=== PATIENT | female | born 1950 | race Caucasian/White ===

== ENCOUNTER → 2017-02-08 | Outpatient (CLI) | payer MEDICARE | END | disposition home or self-care (01) | LOC: CFH 12:20 | PROVIDERS: ATTEND Family Medicine | DX: N63 Unspecified lump in breast (principal) | CPT/HCPCS: 76641; G0206 ==

== ENCOUNTER 2019-01-16 09:13 | Inpatient (IN) | payer MEDICARE ==
[~2019-01-16] VITALS: Ht 162.6 cm; Wt 53.4 kg
[2019-01-16] MEDS ORDERED: PANTOPRAZOLE 80 MG in SODIUM CHLORIDE 0.9% 50 ML IVPB ONE (09:25)
[2019-01-16] MEDS ORDERED: PANTOPRAZOLE 80 MG in SODIUM CHLORIDE 0.9% 100 ML IV SCH (09:25)
[2019-01-16] MEDS ORDERED: SODIUM CHLORIDE 0.9% 1,000 ML IV ONE (09:25)
[2019-01-16] MEDS ORDERED: SODIUM CHLORIDE FLUSH 10ML SYR IVF ONE (09:30)
[2019-01-16 09:55] LABS: BASOPHILS # (AUTO) 0.01 x10^3/uL (0-0.1); BASOPHILS % (AUTO) 0 % (0-1); EOSINOPHILS # (AUTO) 0.04 x10^3/uL (0-0.4); EOSINOPHILS % (AUTO) 1 % (1-7); LYMPHOCYTES # (AUTO) 0.34 x10^3/uL (1-3.4); LYMPHOCYTES % (AUTO) 6 % (22-44); MD NO; MEAN CORPUSCULAR HEMOGLOBIN 30.6 pg (27.0-34.8); MEAN CORPUSCULAR HGB CONC 33.5 g/dL (32.4-35.8); MEAN CORPUSCULAR VOLUME 91.2 fL (80-100); MEAN PLATELET VOLUME 8.2 fL (7.4-10.4); MONOCYTES # (AUTO) 0.32 x10^3/uL (0.2-0.8); MONOCYTES % (AUTO) 6 % (2-9); NEUTROPHILS % (AUTO) 87 % (42-75); PLATELET COUNT 230 x10^3/uL (130-400); RED BLOOD COUNT 1.66 x10^6/uL (3.82-5.3); RED CELL DISTRIBUTION WIDTH 13.8 % (9.6-15.2)
--- NOTE | 2019-01-16 09:57 | NUR ---
Pt resting in bed, comfortable, family at bedside. Denies any pain or needs at this time. Critical result received from lab, Hgb 5.1, Hct 15.1, ERP made aware.
[2019-01-16 09:58] LABS: INTERNATIONAL NORMALIZED RATIO 1.02 (0.93-1.1); PROTHROMBIN TIME 10.7 Seconds (9.6-11.5)
--- NOTE | 2019-01-16 10:00 | NUR ---
paged dr gonzalez for dr love
[2019-01-16 10:02] LABS: ALBUMIN 2.5 g/dL (3.4-5.0); ANION GAP 5 mmol/L (5-15); CALCIUM 8.2 mg/dL (8.5-10.1); CHLORIDE 110 mmol/L (98-107); CREATININE 0.52 mg/dL (0.55-1.02)
--- NOTE | 2019-01-16 10:02 | NUR ---
dr gonzalez returned call to dr love
[2019-01-16 10:03] LABS: ALANINE AMINOTRANSFERASE < 6 U/L (12-78)
[2019-01-16 10:04] LABS: ALKALINE PHOSPHATASE 69 U/L (45-117); BILIRUBIN,TOTAL 0.2 mg/dL (0.2-1.0); TOTAL PROTEIN 5.3 g/dL (6.4-8.2)
--- NOTE | 2019-01-16 10:29 | NUR ---
PT MOVED TO TR04, CARE ASSUMED. PT GAVE VERBAL CONSENT FOR BLOOD TRANSFUSION.
[2019-01-16] MEDS ORDERED: METOCLOPRAMIDE 5 MG/ML, 2ML ONE (10:31)
--- NOTE | 2019-01-16 10:34 | NUR ---
PT WITH 300MLS BLOODY EMESIS. PT PALE, SR PER MONITOR,
--- NOTE | 2019-01-16 10:52 | NUR ---
PT INTUBATED BY DR PECK 8.0 ETT, 22 AT [facility], AC 12 TV 500 PEEP 5 100%
[2019-01-16] MEDS ORDERED: FENTANYL PF 100 MCG/2ML ONE ×2 (10:55→12:05)
[2019-01-16] MEDS ORDERED: PHENYLEPHRINE 10 MG in SODIUM CHLORIDE 0.9% 249 ML IV PRN ×2 (10:56→12:30)
[2019-01-16 11:07] VITALS: BP 173/80
--- NOTE | 2019-01-16 11:11 | NUR ---
CORDIS PLACED IN RIGHT FEMORAL BY DR PECK
[2019-01-16 11:22] VITALS: BP 143/83
--- NOTE | 2019-01-16 11:35 | NUR ---
REPORT CALLED TO SAMANTHA GRAY
[2019-01-16 11:41] VITALS: BP 154/88
--- NOTE | 2019-01-16 11:43 | NUR ---
TUBE PUSHER AT BEDSIDE FOR ABG AND LAB DRAW.
[2019-01-16] MEDS: PANTOPRAZOLE 80 MG in SODIUM CHLORIDE 0.9% 100 ML IV SCH ×2 (11:46→20:16)
[2019-01-16 11:58] VITALS: BP 148/89
[2019-01-16] MEDS ORDERED: ACETAMINOPHEN 325 MG TABLET PO PRN (12:00)
[2019-01-16] MEDS ORDERED: METOCLOPRAMIDE 5 MG/ML, 2ML IVPush ONE (12:00)
[2019-01-16] MEDS ORDERED: POLYETHYLENE GLYCOL 17 GM PACKET PO PRN (12:00)
[2019-01-16] MEDS ORDERED: MIDAZOLAM 1 MG/ML, 2ML IVPush ONE ×4 (12:00→13:30)
[2019-01-16] MEDS ORDERED: SUCCINYLCHOLINE 20 MG/ML, 10ML IVPush ONE (12:00)
[2019-01-16] MEDS ORDERED: ONDANSETRON 2MG/ML, 2ML IVPush PRN (12:00)
[2019-01-16] MEDS ORDERED: ETOMIDATE 20 MG/10 ML IVPush ONE (12:00)
[2019-01-16] MEDS ORDERED: FENTANYL PF 100 MCG/2ML IVPush ONE ×3 (12:00→12:30)
--- NOTE | 2019-01-16 12:01 | NUR ---
PT BITING ON ETT, DISCUSSED WITH DR PECK, ORDER FOR 5MG VERSED RECEIVED AND GIVEN.
--- NOTE | 2019-01-16 12:08 | NUR ---
DR PECK AT BEDSIDE. PT GIVEN 100MG FENTANYL. PT BITING ON TUBE. BP 148/86SR PER MONITOR
--- NOTE | 2019-01-16 12:18 | NUR ---
DR GUERRERO AT BEDSIDE TO EVAL PT
--- NOTE | 2019-01-16 12:29 | NUR ---
DR GUERRERO AT BEDSIDE FOR UPPER ENDOSCOPY, TIME OUT COMPLETED
[2019-01-16] MEDS ORDERED: FENTANYL PF 100 MCG/2ML IVPush PRN (12:30)
[2019-01-16] MEDS ORDERED: DEXTROSE 4 GM TAB.CHEW PO PRN (12:30)
[2019-01-16] MEDS ORDERED: LIDOCAINE-MPF 1%, 2ML ENDO PRN (12:30)
[2019-01-16] MEDS ORDERED: GLUCAGON 1 MG IM PRN (12:30)
[2019-01-16] MEDS ORDERED: VECURONIUM 10 MG IVPush ONE (12:30)
[2019-01-16] MEDS ORDERED: DEXTROSE 50%, 50ML SYRINGE IVPush PRN (12:30)
[2019-01-16] MEDS ORDERED: PHARMACY MAY ADJ FOR RENAL FX MC SCH (12:30)
[2019-01-16] MEDS: SODIUM CHLORIDE 0.9% 1,000 ML IV SCH (12:37)
[2019-01-16] MEDS ORDERED: EPINEPHRINE SYRINGE 0.1 MG/ML, 10ML ONE ×2 (12:58→14:54)
[2019-01-16 13:03] LABS: TROPONIN I < 0.015 ng/mL (0.000-0.045)
[2019-01-16] MEDS ORDERED: LIDOCAINE 1%, 20ML ONE (13:20)
[2019-01-16] MEDS ORDERED: MIDAZOLAM 1 MG/ML, 5ML IVPush ONE (13:30)
[2019-01-16] MEDS: ALBUTEROL/IPRATROPIUM 2.5MG/0.5MG, 3 ML INLINE SCH ×4 (13:30→22:39)
--- NOTE | 2019-01-16 13:30 | NUR ---
PT TO IR VIA FOUZIA WITH PORTABLE VENT, MONITOR. PT TO GOT TO ROOM 552 AFTER PROCEDURE. SAMANTHA CALLED IN CCU, UPDATED REPORT, POC GIVEN.
[2019-01-16] MEDS: PROPOFOL 100 ML IV PRN (13:41)
[2019-01-16] MEDS ORDERED: VECURONIUM 10 MG ONE (14:53)
[2019-01-16] MEDS ORDERED: SUCCINYLCHOLINE 20 MG/ML, 10ML ONE (14:53)
[2019-01-16] MEDS ORDERED: ETOMIDATE 20 MG/10 ML ONE (14:53)
[2019-01-16] MEDS ORDERED: MIDAZOLAM 1 MG/ML, 5ML ONE (14:53)
[2019-01-16] MEDS ORDERED: PROPOFOL 10 MG/ML, 100ML IV ONE (14:53)
[2019-01-16] MEDS: INSULIN LISPRO 100 UNITS/ML, PEN SQ-INSULIN SCH ×3 (17:16→21:00)
[2019-01-16 17:26] LABS: INTERNATIONAL NORMALIZED RATIO 1.02 (0.93-1.1); PROTHROMBIN TIME 10.7 Seconds (9.6-11.5)
[2019-01-16 17:31] LABS: TROPONIN I 0.042 ng/mL (0.000-0.045)
[2019-01-16 17:33] LABS: MEAN CORPUSCULAR HEMOGLOBIN 31.2 pg (27.0-34.8); MEAN CORPUSCULAR HGB CONC 33.1 g/dL (32.4-35.8); MEAN CORPUSCULAR VOLUME 94.3 fL (80-100); MEAN PLATELET VOLUME 8.3 fL (7.4-10.4); PLATELET COUNT 197 x10^3/uL (130-400); RED BLOOD COUNT 2.76 x10^6/uL (3.82-5.3); RED CELL DISTRIBUTION WIDTH 13.9 % (9.6-15.2)
[2019-01-16 17:34] VITALS: BP 96/65
[2019-01-16 17:34] LABS: ALANINE AMINOTRANSFERASE 8 U/L (12-78); ALBUMIN 2.2 g/dL (3.4-5.0); ANION GAP 4 mmol/L (5-15); CALCIUM 7.1 mg/dL (8.5-10.1); CHLORIDE 114 mmol/L (98-107)
[2019-01-16 17:36] LABS: ALKALINE PHOSPHATASE 63 U/L (45-117); BILIRUBIN,TOTAL 0.4 mg/dL (0.2-1.0); TOTAL PROTEIN 4.7 g/dL (6.4-8.2)
[2019-01-16 17:40] LABS: BASOPHILS # (AUTO) 0.03 x10^3/uL (0-0.1); BASOPHILS % (AUTO) 0 % (0-1); EOSINOPHILS # (AUTO) 0.11 x10^3/uL (0-0.4); EOSINOPHILS % (AUTO) 2 % (1-7); LYMPHOCYTES # (AUTO) 0.65 x10^3/uL (1-3.4); LYMPHOCYTES % (AUTO) 9 % (22-44); MONOCYTES % (AUTO) 7 % (2-9); NEUTROPHILS # (AUTO) 6.35 x10^3/uL (1.8-6.8); NEUTROPHILS % (AUTO) 83 % (42-75)
[2019-01-16 17:45] VITALS: BP 95/62
[2019-01-16 18:04] LABS: MD NO
[2019-01-16] MEDS: LORazepam 2 MG/ML, 1ML IVPush PRN (19:30)
[2019-01-16] MEDS: SODIUM CHLORIDE FLUSH 10ML SYR IVF SCH (20:17)
[2019-01-17] VITALS (9 sets, daily range): BP systolic 101–122; BP diastolic 56–73
[2019-01-17] MEDS: PROPOFOL 100 ML IV PRN (00:01)
[2019-01-17] MEDS: SODIUM CHLORIDE 0.9% 1,000 ML IV SCH (01:05)
[2019-01-17] MEDS: ALBUTEROL/IPRATROPIUM 2.5MG/0.5MG, 3 ML INLINE SCH ×3 (02:09→10:48)
[2019-01-17] MEDS: INSULIN LISPRO 100 UNITS/ML, PEN SQ-INSULIN SCH ×2 (03:00→09:00)
[2019-01-17 03:24] LABS: MEAN CORPUSCULAR HEMOGLOBIN 31.6 pg (27.0-34.8); MEAN CORPUSCULAR HGB CONC 33.7 g/dL (32.4-35.8); MEAN CORPUSCULAR VOLUME 93.8 fL (80-100); PLATELET COUNT 165 x10^3/uL (130-400); RED BLOOD COUNT 2.31 x10^6/uL (3.82-5.3); RED CELL DISTRIBUTION WIDTH 14.5 % (9.6-15.2)
[2019-01-17 03:33] LABS: ALANINE AMINOTRANSFERASE 6 U/L (12-78); ALBUMIN 1.9 g/dL (3.4-5.0); ANION GAP 5 mmol/L (5-15); CALCIUM 7.2 mg/dL (8.5-10.1); CHLORIDE 117 mmol/L (98-107)
[2019-01-17 03:35] LABS: ALKALINE PHOSPHATASE 49 U/L (45-117); BASOPHILS # (AUTO) 0.03 x10^3/uL (0-0.1); BASOPHILS % (AUTO) 0 % (0-1); BILIRUBIN,TOTAL 0.2 mg/dL (0.2-1.0); EOSINOPHILS # (AUTO) 0.01 x10^3/uL (0-0.4); EOSINOPHILS % (AUTO) 0 % (1-7); LYMPHOCYTES # (AUTO) 0.52 x10^3/uL (1-3.4); LYMPHOCYTES % (AUTO) 7 % (22-44); MD SCAN; MONOCYTES # (AUTO) 0.55 x10^3/uL (0.2-0.8); MONOCYTES % (AUTO) 8 % (2-9); NEUTROPHILS % (AUTO) 85 % (42-75); TOTAL PROTEIN 4.1 g/dL (6.4-8.2)
[2019-01-17] MEDS: PANTOPRAZOLE 80 MG in SODIUM CHLORIDE 0.9% 100 ML IV SCH ×2 (06:52→19:05)
[2019-01-17] MEDS: SENNA/DOCUSATE TABLET PO SCH (09:00)
[2019-01-17] MEDS: SODIUM CHLORIDE FLUSH 10ML SYR IVF SCH ×2 (09:00→20:40)
[2019-01-17] MEDS: SUCRALFATE 1 GM/10 ML UDC NG SCH ×3 (09:56→20:40)
[2019-01-17] MEDS ORDERED: SODIUM CHLORIDE 0.9% 1,000 ML IV SCH (11:32)
[2019-01-17] MEDS ORDERED: ALBUTEROL/IPRATROPIUM 2.5MG/0.5MG, 3 ML NPPB PRN (13:30)
[2019-01-17] MEDS: LORazepam 2 MG/ML, 1ML IVPush PRN (17:49)
[2019-01-17] MEDS ORDERED: levodopa PO (18:06)
[2019-01-17] MEDS ORDERED: ALPR0.5T7 PO (18:06)
[2019-01-17] MEDS ORDERED: MELO15TA24 PO (18:06)
[2019-01-17] MEDS ORDERED: FLUO20CA19 PO (18:06)
[2019-01-17] MEDS ORDERED: ARIP5TAB13 PO (18:06)
[2019-01-17] MEDS ORDERED: GABA-827 PO (18:06)
[2019-01-17] MEDS ORDERED: LEFL20TA16 PO (18:06)
[2019-01-17] MEDS ORDERED: BREX3TAB PO (18:06)
[2019-01-18] MEDS: SUCRALFATE 1 GM/10 ML UDC NG SCH ×4 (02:12→20:33)
[2019-01-18] MEDS: PANTOPRAZOLE 80 MG in SODIUM CHLORIDE 0.9% 100 ML IV SCH (02:12)
[2019-01-18 04:14] LABS: O2 FLOW ROOM AIR L/min
[2019-01-18 04:27] LABS: ANION GAP 8 mmol/L (5-15); CALCIUM 8.1 mg/dL (8.5-10.1); CHLORIDE 112 mmol/L (98-107)
[2019-01-18 04:28] LABS: CREATININE 0.29 mg/dL (0.55-1.02)
[2019-01-18 04:37] LABS: BASOPHILS # (AUTO) 0.05 x10^3/uL (0-0.1); BASOPHILS % (AUTO) 1 % (0-1); EOSINOPHILS # (AUTO) 0.06 x10^3/uL (0-0.4); EOSINOPHILS % (AUTO) 1 % (1-7); LYMPHOCYTES # (AUTO) 0.52 x10^3/uL (1-3.4); LYMPHOCYTES % (AUTO) 6 % (22-44); MD NO; MEAN CORPUSCULAR HEMOGLOBIN 30.9 pg (27.0-34.8); MEAN CORPUSCULAR HGB CONC 33.5 g/dL (32.4-35.8); MEAN CORPUSCULAR VOLUME 92.3 fL (80-100); MEAN PLATELET VOLUME 8.4 fL (7.4-10.4); MONOCYTES % (AUTO) 7 % (2-9); NEUTROPHILS # (AUTO) 7.83 x10^3/uL (1.8-6.8); NEUTROPHILS % (AUTO) 86 % (42-75); PLATELET COUNT 167 x10^3/uL (130-400); RED BLOOD COUNT 3.11 x10^6/uL (3.82-5.3); RED CELL DISTRIBUTION WIDTH 15.6 % (9.6-15.2)
[2019-01-18 08:18] VITALS: BP 127/73
[2019-01-18] MEDS: GABAPENTIN 400 MG CAPSULE PO SCH ×5 (08:30→20:33)
[2019-01-18] MEDS ORDERED: LEVODOPA HOMEMEDPO SCH (09:00)
[2019-01-18] MEDS: SODIUM CHLORIDE FLUSH 10ML SYR IVF SCH ×2 (09:00→21:00)
[2019-01-18] MEDS ORDERED: BREXPIPRAZOLE 3 MG HOMEMEDPO SCH (09:00)
[2019-01-18] MEDS: SENNA/DOCUSATE TABLET PO SCH (09:00)
[2019-01-18] MEDS: LEFLUNOMIDE 20 MG TABLET PO SCH (10:02)
[2019-01-18] MEDS: ARIPIPRAZOLE 5 MG TABLET PO SCH (10:02)
[2019-01-18] MEDS: FLUOXETINE HCL 20 MG CAPSULE PO SCH (10:02)
[2019-01-18] MEDS: PANTOPROZOLE 40MG TABLET PO SCH ×2 (10:02→20:33)
[2019-01-18] MEDS: CARBIDOPA/LEVODOPA 25 MG/100 MG TABLET PO SCH ×3 (10:03→20:33)
[2019-01-18 15:02] VITALS: BP 121/71
[2019-01-19] MEDS: CARBIDOPA/LEVODOPA 25 MG/100 MG TABLET PO SCH ×4 (00:28→12:36)
[2019-01-19 03:52] VITALS: BP 124/77
[2019-01-19] MEDS: SUCRALFATE 1 GM/10 ML UDC NG SCH ×2 (04:27→11:16)
[2019-01-19 05:17] LABS: BASOPHILS # (AUTO) 0.03 x10^3/uL (0-0.1); BASOPHILS % (AUTO) 0 % (0-1); EOSINOPHILS # (AUTO) 0.15 x10^3/uL (0-0.4); EOSINOPHILS % (AUTO) 2 % (1-7); LYMPHOCYTES # (AUTO) 0.65 x10^3/uL (1-3.4); LYMPHOCYTES % (AUTO) 8 % (22-44); MD NO; MEAN CORPUSCULAR HEMOGLOBIN 31.1 pg (27.0-34.8); MEAN CORPUSCULAR HGB CONC 33.3 g/dL (32.4-35.8); MEAN CORPUSCULAR VOLUME 93.4 fL (80-100); MEAN PLATELET VOLUME 8.7 fL (7.4-10.4); MONOCYTES # (AUTO) 0.62 x10^3/uL (0.2-0.8); MONOCYTES % (AUTO) 7 % (2-9); NEUTROPHILS # (AUTO) 7.14 x10^3/uL (1.8-6.8); NEUTROPHILS % (AUTO) 83 % (42-75); PLATELET COUNT 191 x10^3/uL (130-400); RED BLOOD COUNT 3.43 x10^6/uL (3.82-5.3); RED CELL DISTRIBUTION WIDTH 15.6 % (9.6-15.2)
[2019-01-19] MEDS: GABAPENTIN 400 MG CAPSULE PO SCH ×2 (06:07→11:16)
[2019-01-19 06:52] VITALS: BP 147/80
[2019-01-19] MEDS: PANTOPROZOLE 40MG TABLET PO SCH (08:29)
[2019-01-19] MEDS: ARIPIPRAZOLE 5 MG TABLET PO SCH (08:29)
[2019-01-19] MEDS: SODIUM CHLORIDE FLUSH 10ML SYR IVF SCH (08:29)
[2019-01-19] MEDS: FLUOXETINE HCL 20 MG CAPSULE PO SCH (08:29)
[2019-01-19] MEDS: SENNA/DOCUSATE TABLET PO SCH (08:30)
[2019-01-19] MEDS: LEFLUNOMIDE 20 MG TABLET PO SCH (08:36)
[2019-01-19] MEDS ORDERED: POLY17PO5 PO (11:27)
[2019-01-19] MEDS ORDERED: SUCR1ORA5 NG (11:27)
[2019-01-19] MEDS ORDERED: TRAM50TA2 PO (11:27)
[2019-01-19] MEDS ORDERED: PANT40TA5 PO (11:27)
== END 2019-01-19 13:10 | disposition home or self-care (01) | DRG 356 ==
LOC: ED 10:44 → EDIP 11:20 → CCU 15:25 → 3NE 01-18 09:06 → DCLOUNGE 01-19 12:59
PROVIDERS: ADMIT Internal Medicine; ATTEND Internal Medicine
PROC: 5A1945Z Respiratory Ventilation, 24-96 Consecutive Hours (ICD-10-PCS; 2019-01-16)
PROC: 0BH17EZ Insertion of Endotracheal Airway into Trachea, Via Natural or Artificial Opening (ICD-10-PCS; 2019-01-16)
PROC: 04L33DZ Occlusion of Hepatic Artery with Intraluminal Device, Percutaneous Approach (ICD-10-PCS; 2019-01-16)
PROC: 30233K1 Transfusion of Nonautologous Frozen Plasma into Peripheral Vein, Percutaneous Approach (ICD-10-PCS; 2019-01-16)
PROC: 30233N1 Transfusion of Nonautologous Red Blood Cells into Peripheral Vein, Percutaneous Approach (ICD-10-PCS; 2019-01-16)
PROC: 30233R1 Transfusion of Nonautologous Platelets into Peripheral Vein, Percutaneous Approach (ICD-10-PCS; 2019-01-16)
PROC: 06HY33Z Insertion of Infusion Device into Lower Vein, Percutaneous Approach (ICD-10-PCS; 2019-01-16)
PROC: 0D9670Z Drainage of Stomach with Drainage Device, Via Natural or Artificial Opening (ICD-10-PCS; 2019-01-16)
PROC: 3E0G8GC Introduction of Other Therapeutic Substance into Upper GI, Via Natural or Artificial Opening Endoscopic (ICD-10-PCS; principal; 2019-01-16 12:00)
DX: K26.4 Chronic or unspecified duodenal ulcer with hemorrhage (principal); G93.41 Metabolic encephalopathy; E43 Unspecified severe protein-calorie malnutrition; R57.8 Other shock; J96.01 Acute respiratory failure with hypoxia; D62 Acute posthemorrhagic anemia; I50.32 Chronic diastolic (congestive) heart failure; Z88.2 Allergy status to sulfonamides; F32.9 Major depressive disorder, single episode, unspecified; F41.1 Generalized anxiety disorder; G20 Parkinson's disease; I73.00 Raynaud's syndrome without gangrene; M06.9 Rheumatoid arthritis, unspecified; M19.90 Unspecified osteoarthritis, unspecified site; Z68.20 Body mass index [BMI] 20.0-20.9, adult; T39.395A Adverse effect of other nonsteroidal anti-inflammatory drugs [NSAID], initial encounter; Y92.89 Other specified places as the place of occurrence of the external cause
CPT/HCPCS: 31500; 36415; 36556; 36600; 37244; 71045; 80048; 80053; 82140; 82803; 82962; 83605; 83735; 84100; 84443; 84478; 84484; 85014; 85018; 85025; 85610; 85730; 86850; 86900; 86923; 87070; 87081; 87205; 87338; 93005; 93306; 94002; 94003; 94640; 96365; 96375; 99291; G0378; J2250; J2704; J3010; J7620; C1751; C1760; C1769; C1894; C9113; J0330; J2060; J2765; J7030; P9016; P9017; P9035

== ENCOUNTER → 2019-08-11 | Outpatient (CLI) | payer MEDICARE ==
[~2019-08-11] MED LIST: ALPR0.5T7 PO; ARIP5TAB13 PO; BREX3TAB PO; CARBIDOPA PO; FLUO20CA19 PO; GABA-827 PO; LEFL20TA16 PO; MELO15TA24 PO; PANT40TA5 PO; POLY17PO5 PO; SUCR1ORA5 NG; TRAM50TA2 PO; levodopa PO
[2019-08-11 14:05] LABS: BASOPHILS # (AUTO) 0.06 x10^3/uL (0-0.1); BASOPHILS % (AUTO) 1 % (0-1); EOSINOPHILS # (AUTO) 0.04 x10^3/uL (0-0.4); EOSINOPHILS % (AUTO) 1 % (1-7); LYMPHOCYTES % (AUTO) 23 % (22-44); MD NO; MEAN CORPUSCULAR HEMOGLOBIN 31.9 pg (27.0-34.8); MEAN CORPUSCULAR HGB CONC 33.9 g/dL (32.4-35.8); MONOCYTES # (AUTO) 0.45 x10^3/uL (0.2-0.8); MONOCYTES % (AUTO) 10 % (2-9); NEUTROPHILS # (AUTO) 2.89 x10^3/uL (1.8-6.8); NEUTROPHILS % (AUTO) 65 % (42-75); PLATELET COUNT 255 x10^3/uL (130-400); RED BLOOD COUNT 3.98 x10^6/uL (3.82-5.3); RED CELL DISTRIBUTION WIDTH 13.8 % (9.6-15.2)
[2019-08-11 14:10] LABS: ALBUMIN 3.5 g/dL (3.4-5.0); ANION GAP 7 mmol/L (5-15); CALCIUM 8.7 mg/dL (8.5-10.1); CHLORIDE 107 mmol/L (98-107); INTERNATIONAL NORMALIZED RATIO 1.01 (0.93-1.1); PROTHROMBIN TIME 10.7 Seconds (9.6-11.5)
[2019-08-11 14:14] LABS: ALANINE AMINOTRANSFERASE 15 U/L (12-78); ALKALINE PHOSPHATASE 75 U/L (45-117); BILIRUBIN,TOTAL 0.4 mg/dL (0.2-1.0); TOTAL PROTEIN 6.7 g/dL (6.4-8.2)
== END | disposition home or self-care (01) ==
LOC: STAR 12:39
PROVIDERS: ATTEND Neurological Surgery
DX: Z01.818 Encounter for other preprocedural examination (principal); G20 Parkinson's disease
CPT/HCPCS: 36415; 80053; 85025; 85610; 85730; 93005

== ENCOUNTER 2019-08-13 10:35 | Day surgery (SDC) | payer MEDICARE ==
[~2019-08-13] VITALS: Ht 166.4 cm; Wt 47.3 kg
[~2019-08-13 10:35] MED LIST changes: +GADOTERATE 7.5 MMOL/15 ML SYR ONE
[2019-08-13 11:20] VITALS: BP 111/67
[2019-08-13] MEDS ORDERED: LACTATED RINGERS 1,000 ML IV SCH (11:23)
[2019-08-13] MEDS ORDERED: FENTANYL PF 100 MCG/2ML IV PRN (13:00)
[2019-08-13] MEDS ORDERED: MEPERIDINE/PF 25MG/ML,1ML IVPush PRN (13:00)
[2019-08-13] MEDS ORDERED: ONDANSETRON 2MG/ML, 2ML IV PRN (13:00)
[2019-08-13] MEDS ORDERED: OXYcodone 5 MG/5 ML ORAL.SOL UDC PO PRN (13:00)
[2019-08-13] MEDS ORDERED: PROMETHAZINE 25 MG/ML, 1ML IV PRN (13:00)
[2019-08-13] MEDS ORDERED: LABETALOL 5MG/ML, 20ML IV PRN (13:00)
[2019-08-13] MEDS ORDERED: hydrALAzine 20 MG/ML, 1ML IV PRN (13:00)
[2019-08-13] MEDS ORDERED: PROPOFOL 10 MG/ML, 20ML ONE (15:16)
[2019-08-13] MEDS ORDERED: DEXAMETHASONE 4 MG/ML, 1ML ONE (15:16)
[2019-08-13] MEDS ORDERED: ONDANSETRON 2MG/ML, 2ML ONE (15:16)
== END 2019-08-13 14:30 | disposition home or self-care (01) ==
LOC: OUT 10:35 → EDSTATUS 12:45 → OUT 14:30
PROVIDERS: ATTEND Neurological Surgery
DX: G20 Parkinson's disease (principal); G31.89 Other specified degenerative diseases of nervous system; M19.90 Unspecified osteoarthritis, unspecified site; Z96.82 Presence of neurostimulator; Z85.42 Personal history of malignant neoplasm of other parts of uterus; Z88.5 Allergy status to narcotic agent; Z88.2 Allergy status to sulfonamides; Z79.899 Other long term (current) drug therapy; Z87.891 Personal history of nicotine dependence
CPT/HCPCS: 70553; A9575; J1100; J2405; J2704

== ENCOUNTER 2019-09-03 07:51 | Day surgery (SDC) | payer MEDICARE ==
[~2019-09-03] VITALS: Ht 165.1 cm; Wt 48.2 kg
[~2019-09-03 07:51] MED LIST changes: +ALPR0.5T5 PO; +BACITRACIN 50,000 UNIT ONE; +BACITRACIN OINT 500U/GM, 15 GM ONE; +BREX4TAB PO; +BUPIVACAINE/PF-EPI 0.5% 1:200K ONE; +CARB1TAB22 PO; +FLUO20CA23 PO; +GABA600T7 PO
[2019-09-03 08:13] VITALS: BP 101/64
[2019-09-03] MEDS ORDERED: LACTATED RINGERS 1,000 ML IV SCH (08:18)
[2019-09-03] MEDS ORDERED: PROPOFOL 50 ML ONE (10:27)
[2019-09-03] MEDS ORDERED: FENTANYL PF 250 MCG/5ML ONE (10:54)
[2019-09-03] MEDS ORDERED: PROPOFOL 10 MG/ML, 20ML ONE (11:15)
[2019-09-03] MEDS ORDERED: ONDANSETRON 2MG/ML, 2ML ONE (11:16)
[2019-09-03] MEDS ORDERED: ROCURONIUM 10MG/ML,5ML ONE (11:16)
[2019-09-03] MEDS ORDERED: DIPHENHYDRAMINE 50 MG/ML, 1ML IVPush PRN (11:30)
[2019-09-03] MEDS ORDERED: DIAZEPAM 5 MG/ML, 2ML IVPush PRN (11:30)
[2019-09-03] MEDS ORDERED: EPHEDRINE 50 MG/ML, 1ML IM PRN (11:30)
[2019-09-03] MEDS ORDERED: ONDANSETRON ODT 8 MG PO PRN (11:30)
[2019-09-03] MEDS ORDERED: HYDROmorphone 2 MG/ML, 1ML IVPush PRN (11:30)
[2019-09-03] MEDS ORDERED: FENTANYL PF 100 MCG/2ML IV PRN (11:30)
[2019-09-03] MEDS ORDERED: MIDAZOLAM 1 MG/ML, 2ML IV PRN (11:30)
[2019-09-03] MEDS ORDERED: EPHEDRINE 50 MG/ML, 1ML IVPush PRN (11:30)
[2019-09-03] MEDS ORDERED: ONDANSETRON 2MG/ML, 2ML IV PRN (11:30)
[2019-09-03] MEDS ORDERED: ACETAMINOPHEN 325 MG TABLET PO PRN (11:30)
[2019-09-03] MEDS ORDERED: CEFAZOLIN 1,000 MG ONE (11:45)
[2019-09-03] MEDS ORDERED: ACETAMINOPHEN 500 MG TABLET ONE (13:05)
== END 2019-09-03 13:40 | disposition home or self-care (01) ==
LOC: OUT 07:51
PROVIDERS: ATTEND Neurological Surgery
DX: G20 Parkinson's disease (principal); M19.90 Unspecified osteoarthritis, unspecified site; Z85.42 Personal history of malignant neoplasm of other parts of uterus; Z88.2 Allergy status to sulfonamides; Z88.5 Allergy status to narcotic agent; Z98.890 Other specified postprocedural states; Z82.61 Family history of arthritis; Z80.9 Family history of malignant neoplasm, unspecified
CPT/HCPCS: 61886; C1767; C1883; J0690; J2405; J2704; J3010; J7120; A9575

== ENCOUNTER 2020-02-29 06:26 | Emergency (ER) | payer MEDICARE ==
[~2020-02-29] VITALS: Ht 165.1 cm; Wt 55.7 kg
[~2020-02-29 06:26] MED LIST changes: -BACITRACIN 50,000 UNIT ONE; -BACITRACIN OINT 500U/GM, 15 GM ONE; -BUPIVACAINE/PF-EPI 0.5% 1:200K ONE; -GADOTERATE 7.5 MMOL/15 ML SYR ONE; -PANT40TA5 PO; +PANT40TA6 PO
[2020-02-29] MEDS ORDERED: KETOROLAC 30 MG/1 ML IM ONE (07:00)
[2020-02-29] MEDS ORDERED: KETOROLAC 30 MG/1 ML ONE (07:05)
--- NOTE | 2020-02-29 07:12 | NUR ---
PT C/O LEFT SHOLDER PAIN THAT OCCURED SPONTANEOUSLY. NO TRAUMA NOTED. MEDICATED PER AUG. PAIN CURRENTLY 10/24. PT LEFT RESTING COMFORTABLY. PT WAITING FOR XRAY OF SHOULDER.
[2020-02-29 08:07] VITALS: BP 121/47
--- NOTE | 2020-02-29 08:07 | NUR ---
PT STATES NO IMPROVEMENT IN PAIN SINCE MEDICATED. AWAITING DISPO
--- NOTE | 2020-02-29 08:50 | NUR ---
PT AMBULATED TO MT DESK. STEADY GAIT.
== END 2020-02-29 08:52 | disposition home or self-care (01) ==
LOC: ED 07:13
DX: M75.52 Bursitis of left shoulder (principal); M25.512 Pain in left shoulder
CPT/HCPCS: 73030; 96372; 99283; J1885

== ENCOUNTER 2020-11-20 09:47 | Emergency (ER) | payer MEDICARE ==
[~2020-11-20] VITALS: Ht 165.1 cm; Wt 58.0 kg
--- NOTE | 2020-11-20 10:06 | NUR ---
JUDD AT BEDSIDE FOR EVALUATION. PATIENT WALKED BACK FROM TRIAGE WITH CHIEF C/O SLEEPING MORE THAN USUAL X2 DAYS. PATIENT ALSO REPORTS BILATERAL BACK PAIN AND DEAN. DENIES PAIN WITH URINATION OR INCREASED FREQUENCY. NADN, CONNECTED TO MONITOR, VSS, ACCOMPANIED BY SPOUSE, CALL LIGHT WITHIN REACH.
[2020-11-20] MEDS ORDERED: FLUO20TA25 PO (10:18)
[2020-11-20] MEDS ORDERED: ALPR-155 PO (10:18)
[2020-11-20] MEDS ORDERED: BREX1TAB PO (10:18)
[2020-11-20] MEDS ORDERED: CLON-275 PO (10:18)
[2020-11-20] MEDS ORDERED: GABA-827 PO (10:18)
--- NOTE | 2020-11-20 10:21 | NUR ---
PATIENT AMBULATED TO BATHROOM WITH USE OF WALKER AND ASSISTANCE OF SIGNIFICANT OTHER FOR URINE SAMPLE.
--- NOTE | 2020-11-20 10:45 | NUR ---
PATIENT BACK IN [facility], CONNECTED TO MONITOR, VSS, SPOUSE AT BEDSIDE, CALL LIGHT WITHIN REACH. URINE COLLECTED AND SENT TO LAB.
[2020-11-20 11:01] LABS: MICROSCOPIC INDICATED
[2020-11-20 11:10] LABS: BASOPHILS % (AUTO) 1 % (0-1); EOSINOPHILS % (AUTO) 2 % (1-7); LYMPHOCYTES % (AUTO) 10 % (22-44); MD NO; MEAN CORPUSCULAR HEMOGLOBIN 30.8 pg (27.0-34.8); MEAN CORPUSCULAR HGB CONC 33.5 g/dL (32.4-35.8); MONOCYTES % (AUTO) 9 % (2-9); NEUTROPHILS % (AUTO) 79 % (42-75); PLATELET COUNT 192 x10^3/uL (130-400); RED BLOOD COUNT 3.92 x10^6/uL (3.82-5.3); RED CELL DISTRIBUTION WIDTH 13.5 % (9.6-15.2)
--- NOTE | 2020-11-20 11:13 | NUR ---
PATIENT TO CT SCAN.
[2020-11-20 11:16] LABS: ALANINE AMINOTRANSFERASE 13 U/L (12-78); ALBUMIN 2.9 g/dL (3.4-5.0); ANION GAP 5 mmol/L (5-15); CALCIUM 9.3 mg/dL (8.5-10.1); CHLORIDE 109 mmol/L (98-107); CREATININE 0.63 mg/dL (0.55-1.02)
[2020-11-20 11:26] LABS: ALKALINE PHOSPHATASE 67 U/L (45-117); BILIRUBIN,TOTAL 0.4 mg/dL (0.2-1.0); TOTAL PROTEIN 6.7 g/dL (6.4-8.2)
[2020-11-20] MEDS ORDERED: FOSFOMYCIN 3 GM PACKET ONE (12:27)
[2020-11-20 12:30] VITALS: BP 131/71
[2020-11-20] MEDS ORDERED: FOSFOMYCIN 3 GM PACKET PO ONE (12:30)
--- NOTE | 2020-11-20 12:58 | NUR ---
Patient given discharge instructions and they have confirmed that they understand the instructions. Patient ambulatory with steady gait and use of front wheel walker, spouse at side. NAD, all questions answered appropriately, denies additional needs at this time. No personal belongings left in room after discharge.
== END 2020-11-20 12:59 | disposition home or self-care (01) ==
LOC: ED 10:49
DX: N30.00 Acute cystitis without hematuria (principal); R41.82 Altered mental status, unspecified; R00.1 Bradycardia, unspecified; G20 Parkinson's disease
CPT/HCPCS: 36415; 70450; 71045; 80053; 81001; 84443; 85025; 87077; 87086; 87186; 93005; 99285